=== PATIENT | male | born 1970 | race African-American/Black ===

== ENCOUNTER 2021-04-29 01:03 | Emergency (ER) | payer MEDICARE ==
[~2021-04-29] VITALS: Ht 167.6 cm; Wt 88.4 kg
--- NOTE | 2021-04-29 01:06 | PHYS DOC ---
Past Medical History Additional Past Medical Histor: Colitis Past Surgical History: Other Additional Past Surgical Histo: vasectomy Smoking Status: Former Smoker Alcohol Use: None General Adult EDM: Chief Complaint: SHOULDER INJURY HPI: HPI: Patient is a 50-year-old male with past medical history of hypertension hyperlipidemia presenting for left shoulder pain that has been going on for the past month but worsened tonight. Reports the pain is a sharp, shooting from the back of his shoulder/neck down his entire left arm. He reports that it is often worse when he tries to go to sleep at night. Denies any trauma to the area that he is aware of. He denies any numbness tingling or focal weakness of that arm. He took 2 hydrocodone tonight without much relief. Raising his arm above his head will aggravate the pain. Denies chest pain, shortness of breath, nausea/vomiting, and syncope. Review of Systems: Review of Systems: Constitutional: Denies fever or chills HENT: Denies nasal congestion or sore throat Respiratory: Denies cough or shortness of breath Cardiovascular: Denies chest pain or palpitations GI: Denies abdominal pain, nausea, or vomiting : Denies dysuria or hematuria Musculoskeletal: Reports left neck and shoulder pain; denies back pain Integument: Denies rash or skin lesions Neurologic: Denies headache, focal weakness or sensory changes Complete systems were reviewed and found to be within normal limits, except as documented in this note. Heart Score: C/O Chest Pain: No Allergies: Allergies: Allergies Coded Allergies Type Severity Reaction Last Updated Verified No Known Drug Allergies 04/29/21 No Physical Exam: PE: Constitutional: Well developed, well nourished, non-toxic appearance HENT: Normocephalic, atraumatic Eyes: Conjunctiva normal, no discharge Neck: Normal range of motion, paraspinal tenderness on the left Lungs & Thorax: No respiratory distress, equal chest rise and fall Abdomen: Soft, no tenderness Skin: Warm, dry, no rash Back: No tenderness, no CVA tenderness Extremities: Left shoulder is not tender to palpation, flexion of left shoulder aggravates pain, muscle strength +5/5 b/l Neurologic: Alert and oriented X 3, normal motor function, normal sensory function, no focal deficits noted Psychologic: Affect normal, judgment normal Current Patient Data: Vital Signs: Vital Signs Date Time Temp Pulse Resp B/P (MAP) Pulse Ox O2 Delivery O2 Flow Rate FiO2 04/29/21 01:05 98.6 71 18 140/93 (109) 98 98.6 EKG: EKG: Completed at 01:16, normal sinus rhythm at 66 bpm, slight J-point elevations in the V2 and V3 without reciprocal changes, QRS 82 ms, QT/QTc 346/364 ms Course & Med Decision Making: Course & Med Decision Making Pertinent Labs and Imaging studies reviewed. (See chart for details) Patient is a 50-year-old male with past medical history of hypertension hyperlipidemia presenting for left shoulder pain that has been going on for the past month. EKG obtained due to left shoulder pain, slight J-point elevations in V2 and V3 but no reciprocal changes suggestive of ischemia. Patient denied chest pain. Pain is aggravated with flexion of the left shoulder which he describes as sharp, shooting down his arm, described similarly to pinched nerve in neck. Will give patient dose of dexamethasone and Toradol here in the ED. We will provide prescription for Norflex and dexamethasone for inflammation. Will provide referral to pain clinic recommend imaging with MRI. Patient stable for discharge with outpatient follow-up with PCP. Discussed findings and plan with patient, who acknowledges understanding and agreement. Dragon Disclaimer: Dragon Disclaimer: This electronic medical record was generated, in whole or in part, using a voice recognition dictation system. Departure Departure Impression: Primary Impression: Cervical radiculopathy Disposition: HOME / SELF CARE / HOMELESS Condition: STABLE Referrals: UNKNOWN PCP NAME (PCP) JUN BARRETT MD Patient Instructions: Cervical Radiculopathy, [id number] Additional Instructions: ICE area of discomfort 20 min on then leave off next 20 mins. Repeat several times daily for next few days. Scripts Naproxen (NAPROXEN) 375 Mg Tablet 375 MG PO TID PRN PRN for PAIN, #30 TAB Prov: ANDREAS MARK DO 04/29/21 Orphenadrine Citrate (ORPHENADRINE CITRATE) 100 Mg Tablet.er 100 MG PO BID PRN for MUSCLE PAIN, #14 TAB Prov: ANDREAS MARK DO 04/29/21 Prednisone (PREDNISONE) 20 Mg Tablet 2 TAB PO DAILY, #8 TAB Start this prescription tomorrow, 04/30/21 Prov: ANDREAS MARK DO 04/29/21 ANDREAS MARK DO Apr 29, 2021:06
[2021-04-29] MEDS ORDERED: NAPR-695 PO (01:20)
[2021-04-29] MEDS ORDERED: PRED20TA PO (01:20)
[2021-04-29] MEDS ORDERED: ORPH100T PO (01:20)
[2021-04-29] MEDS ORDERED: DEXAMETHASONE 4 MG TABLET PO ONE (01:30)
[2021-04-29] MEDS ORDERED: KETOROLAC 30 MG/ML VIAL. IM ONE (01:30)
[2021-04-29 01:36] VITALS: BP 136/75
--- NOTE | 2021-04-29 01:44 | EKG ---
[facility] [address] [place] [address] Test Date: 2021-04-29 Test Time: 01:16:33 Pat Name: ANNAMARIA PRITCHETT Department: Room: Gender: M Cherry Sorter: : 1970 Requested By: ANDREAS MARK Order Number: [id number] Reading MD: Kyle Gar Measurements Intervals [place] Rate: 66 P: 28 WV: 192 QRS: 36 QRSD: 82 T: 28 QT: 346 QTc: 364 Interpretive Statements SINUS RHYTHM INCOMPLETE RIGHT BUNDLE BRANCH BLOCK OTHERWISE NORMAL ECG RI6.01 No previous ECG available for comparison Electronically Signed On 04-30-2021 9:26:12 INTERNATIONAL GUEST COORDINATOR by Kyle Gar
== END 2021-04-29 01:35 | disposition home or self-care (01) ==
LOC: ER 01:03
DX: M54.12 Radiculopathy, cervical region (principal); M25.512 Pain in left shoulder; Z87.891 Personal history of nicotine dependence; I10 Essential (primary) hypertension; E78.5 Hyperlipidemia, unspecified
CPT/HCPCS: 93005; 96372; 99283; J1885